=== PATIENT | male | born 1945 | race Caucasian/White ===

== ENCOUNTER 2019-07-14 11:06 | Day surgery (SDC) | payer MEDICARE ==
[~2019-07-14 11:06] MED LIST: Aspirin EC81 MG; OMEPRAZOLE MAGN20 MG; Prozac20 MG; Xalatan2.5 ML
--- NOTE | 2019-07-14 12:16 | NUR ---
07/14/19 1216 JOE VILLEDA History, Chart, Medications and Allergies reviewed before start of procedure.MONITOR INTACT WITH CONTINUOUS PULSE OXIMETRY AND INTERMITTENT BP.3-LEAD EKG REVIEWED WITH PHYSICIAN PRIOR TO START OF PROCEDURE.O2 VIA N/C INTACT THROUGHOUT SEDATION/PROCEDURE. PATIENT DETERMINED TO BE ASA APPROPRIATE FOR PROPOFOL SEDATION PRIOR TO START OF PROCEDURE BY DR. MARQUES.
--- NOTE | 2019-07-14 12:46 | NUR ---
PT TO STEP. DENIES PAIN. AT BEDSIDE.
--- NOTE | 2019-07-14 13:04 | NUR ---
WRITEEN AND VERBAL D/C INSTUCTIONS GIVEN TO PT AND WITH STATED UNDERSTANDING.
== END 2019-07-14 13:18 | disposition home or self-care (01) ==
LOC: ORSCMMR 11:06 → SURS 11:08 → ORSCMMR 12:30 → ORD 12:30 → SURS 13:18 → ORSCMMR 13:18
PROVIDERS: Internal Medicine Gastroenterology
PROC: 0DB68ZX Excision of Stomach, Via Natural or Artificial Opening Endoscopic, Diagnostic (ICD-10-PCS; principal; 2019-07-14 12:30)
PROC: 0DB58ZX Excision of Esophagus, Via Natural or Artificial Opening Endoscopic, Diagnostic (ICD-10-PCS; principal; 2019-07-14 12:30)
DX: K22.70 Barrett's esophagus without dysplasia (principal)
CPT/HCPCS: 88305; 88342; J2704; J7120

== ENCOUNTER 2021-07-29 12:51 | Day surgery (SDC) | payer MEDICARE ==
[~2021-07-29] VITALS: Ht 177.8 cm; Wt 75.8 kg
[~2021-07-29 12:51] MED LIST changes: +ESCI10 PO; +TIMDOROPSO BOTHEYES
[2021-07-29] MEDS ORDERED: ZINC15 (13:11)
[2021-07-29] MEDS ORDERED: Calcium Acetat667 MG (13:11)
[2021-07-29] MEDS ORDERED: FISH OIL 1,2001 EAC7 (13:13)
[2021-07-29] MEDS ORDERED: VITAMIN D310 MC4 (13:13)
== END 2021-07-29 14:53 | disposition home or self-care (01) ==
LOC: ORSCSDS 12:51
PROVIDERS: Student in an Organized Health Care Education/Training Program
PROC: 0DJD8ZZ Inspection of Lower Intestinal Tract, Via Natural or Artificial Opening Endoscopic (ICD-10-PCS; principal; 2021-07-29 15:00)
DX: Z12.11 Encounter for screening for malignant neoplasm of colon (principal); Z86.010 Personal history of colon polyps; K57.30 Diverticulosis of large intestine without perforation or abscess without bleeding; K64.8 Other hemorrhoids; K64.4 Residual hemorrhoidal skin tags; Z87.891 Personal history of nicotine dependence; Z79.899 Other long term (current) drug therapy; Z79.82 Long term (current) use of aspirin
CPT/HCPCS: J0461; J2405; J2704; J7120

== ENCOUNTER 2022-09-05 22:18 | Emergency (ER) | payer MEDICARE ==
[~2022-09-05] VITALS: Ht 177.8 cm; Wt 81.7 kg
[~2022-09-05 22:18] MED LIST changes: +Calcium Acetat667 MG; +FISH OIL 1,2001 EAC7; +VITAMIN D310 MC4; +ZINC15
[2022-09-05 22:37] LABS: BASOPHILS ABSOLUTE AUTO 0.03 K/mm3 (0.00-0.23); BASOPHILS PERCENT AUTO 1 % (0-2); EOSINOPHILS ABSOLUTE AUTO 0.27 K/mm3 (0.00-0.68); EOSINOPHILS PERCENT AUTO 5 % (0-6); Hematocrit 39.5 % (37.0-53.0); Hemoglobin 13.7 g/dL (13.5-17.5); IMMATURE GRAN ABSOLUTE AUTO 0.01 K/mm3 (0.00-0.10); IMMATURE GRAN PERCENT AUTO 0 % (0-1); LYMPHOCYTES ABSOLUTE AUTO 1.86 K/mm3 (0.84-5.20); LYMPHOCYTES PERCENT AUTO 36 % (21-46); MONOCYTES ABSOLUTE AUTO 0.79 K/mm3 (0.16-1.47); MONOCYTES PERCENT AUTO 16 % (4-13); Mean Corpuscular HGB 31.7 pg (26.0-34.0); Mean Corpuscular HGB Conc 34.7 g/dL (31.5-36.5); Mean Corpuscular Volume 91 fL (80-100); Mean Platelet Volume 9.7 fL (9.1-12.4); NEUTROPHILS ABSOLUTE AUTO 2.15 K/mm3 (1.96-9.15); NEUTROPHILS PERCENT AUTO 42 % (41-73); Platelet Count 174 K/mm3 (150-400); RDW Coefficient Variation 13.1 % (11.7-14.2); RDW Standard Deviation 44.4 fL (35.1-46.3); Red Blood Cell Count 4.32 M/mm3 (4.30-5.90); White Blood Cell Count 5.11 K/mm3 (4.00-11.30)
[2022-09-05 22:54] LABS: Albumin, Blood 3.5 g/dL (3.4-5.0); Albumin/Globulin Ratio 0.9 (0.8-1.8); Bilirubin, Total 0.5 mg/dL (0.1-1.0); Calcium, Blood 8.9 mg/dL (8.5-10.1); Creatinine, Blood 0.94 mg/dL (0.60-1.20); Globulin, Blood 3.8 g/dL (2.2-4.0); Magnesium, Blood 2.1 mg/dL (1.6-2.4); Potassium, Blood 3.7 mmol/L (3.5-5.5); Prothrombin Time Results 10.5 Sec (9.7-11.5); Total Protein, Blood 7.3 g/dL (6.4-8.2)
== END 2022-09-05 23:30 | disposition short-term general hospital (02) ==
LOC: ER 22:18
PROVIDERS: Emergency Medicine
DX: I60.9 Nontraumatic subarachnoid hemorrhage, unspecified (principal); G81.94 Hemiplegia, unspecified affecting left nondominant side; J44.9 Chronic obstructive pulmonary disease, unspecified; I10 Essential (primary) hypertension
CPT/HCPCS: 70450; 71045; 80053; 83735; 85025; 85610; 85730; 93005; 93010; J1953; J2060; J7050